=== PATIENT | male | born 1940 | race Caucasian/White ===

== ENCOUNTER 2019-07-10 23:36 | Inpatient (IN) | payer OTHER, MEDICARE, BC ==
[~2019-07-10] VITALS: Ht 172.7 cm; Wt 65.9 kg
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
[2019-07-10] MEDS ORDERED: TRAMADOL HYDROC50 MG PO (23:57)
[2019-07-10] MEDS ORDERED: FLEXERIL PO (23:57)
[2019-07-11] VITALS (8 sets, daily range): BP systolic 169–202; BP diastolic 81–106
--- NOTE | 2019-07-11 00:10 | NUR ---
PT REASSESSMENT COMPLETE. PT REMAINS STABLE, PT CONFUSED, PT IN NO DISTRESS AT THIS TIME. PT CONTINUES TO ASK ABOUT CAR AND GOING HOME.
--- NOTE | 2019-07-11 00:25 | NUR ---
PT REMAINS STABLE, NO CHANGE IN STATUS. PT PROVIDED PO FLUIDS.
[2019-07-11 00:31] LABS: HEMATOCRIT 35.1 % (39.0-50.0); IMMATURE GRANULOCYTES 0.4 % (0.0-5.0); MEAN CELL VOLUME 93.1 fL CALC (80.0-100.0); MEAN CORPUSCULAR HGB 31.8 pG CALC (26.0-32.0); MEAN CORPUSCULAR HGB CONC 34.2 g/L CALC (32.0-36.0); NEUT# 6.51 thou/uL (1.82-7.42); RED BLOOD COUNT 3.77 mill/uL (4.70-6.10); RED CELL DISTRI WIDTH 12.8 % (11.5-15.5)
[2019-07-11 00:42] LABS: ALBUMIN 4.4 g/dL (3.2-5.0); ALKALINE PHOSPHATASE 54 u/l (38-126); ANION GAP 14 (6-22 (CALC)); BILIRUBIN, TOTAL 1.4 mg/dL (0.0-1.4); BUN 30 mg/dL (8-23); BUN/CREATININE RATIO 22 (12-20 (CALC)); CARBON DIOXIDE 25 mmol/l (22-30); CHLORIDE 106 mmol/l (95-108); CREATININE 1.3 mg/dL (0.7-1.3); ETHYL ALCOHOL 0 mg/dl (0-30); GFR 53 ML/MIN (>=60 (CALC)); GFR FOR AFR.AMER. > 60 ML/MIN (>=60 (CALC)); POTASSIUM 4.6 mmol/l (3.5-5.1); SGOT/AST 27 u/l (19-48); SODIUM 141 mmol/l (137-146); TOTAL PROTEIN 7.7 g/dL (6.3-8.2)
--- NOTE | 2019-07-11 01:00 | NUR ---
REPORT TO ISABELLA BAUTISTA, PT REMAINS STABLE. PT REMAINS CONFUSED,MUST BE RE-ORIENTED FREQUENTLY.
--- NOTE | 2019-07-11 01:05 | NUR ---
REPORT RECEIVED. CARE ASSUMED. PATIENT DAUGHTER IS UNABLE TO COME AND PICK HIM UP. GAVE TWO NUMBERS FOR POTENTIAL RIDES HOME, CALLED BOTH AND NO ANSWER. PATIENT BECOMING FRUSTRATED THAT HE HAS NO WAY HOME. ATTEMPTED TO REASSURE PATIENT THAT HE COULD STAY IN ER UNTIL DAYLIGHT TO THEN MAKE HIS PHONE CALLS TO ARRANGE SOME TYPE OF RIDE HOME
--- NOTE | 2019-07-11 01:28 | NUR ---
PATIENT GIVEN SANDWICH AND CRACKERS.
--- NOTE | 2019-07-11 02:09 | NUR ---
PATIENT REORIENTED TO SITUATION AND NEEDING TO STAY IN ER UNTIL THE MORNING. REMINDED THAT HIS DAUGHTER WILL NOT BE COMING TO PICK HIM UP. PATIENT GIVEN TV REMOTE, WARM BLANKET AND BOTTLES OF WATER IN ATTEMPT TO ALLOW HIME TO REST UNTIL THEN.
--- NOTE | 2019-07-11 02:39 | NUR ---
PATIENT AMBULATORY TO BATHROOM WITH STEADY GAIT.
--- NOTE | 2019-07-11 03:16 | NUR ---
LACERATION REPAIRED BY MD. PATIENT TOLERATED WELL.
--- NOTE | 2019-07-11 03:18 | NUR ---
SIMPLE DRESSING APPLIED TO RIGHT HAND. INSTRUCTED PATIENT TO REFRAIN FROM REMOVING IT. VERBALIZES UNDERSTANDING.
--- NOTE | 2019-07-11 03:40 | NUR ---
PATIENT REORIENTED TO PLACE AND SITUATION. INFORMED YET AGAIN OF PLAN TO FIND A RELIABLE RIDE HOME IS OUR PRIORITY. LIGHTS DIMMED TO ENCOURAGE REST AND CALL LIGHT WITHIN REACH.
--- NOTE | 2019-07-11 03:46 | NUR ---
AMBULATORY TO BATHROOM WITHOUT ASSIST.
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
--- NOTE | 2019-07-11 05:00 | NUR ---
PATIENT OUT TO NURSE'S STATION ASKING ABOUT WHY HE IS HERE, WHAT IS THE PLAN WITH HIS CAR ETC. PATIENT REORIENTED TO PLACE AND SITUATION. EMPHASIZED IMPORTANCE OF NEEDING A SAFE RIDE HOME. PATIENT DOES NOT SEEM TO BE RETAINING ANY INFORMATION GIVEN, IS REPEATING QUESTIONS MULTIPLE TIMES. PATIENT HAS REMOVED DRESSING TO RIGHT HAND.
--- NOTE | 2019-07-11 05:12 | NUR ---
DRESSING APPLIED TO HAND. PATIENT STRONGLY ENCOURAGED TO LEAVE DRESSING ALONE.
--- NOTE | 2019-07-11 05:44 | NUR ---
PATIENT OUT TO NURSE'S STATION, ATTEMPTED TO REORIENT AGAIN TO SITUATION AND WHAT WE ARE WAITING ON. DRESSING REMAINS INTACT
--- NOTE | 2019-07-11 06:10 | NUR ---
VITAL SIGNS ATTEMPTED. PATIENT DECLINED. DENIES ANY COMPLAINTS AT PRESENT. DRESSING TO RIGHT HAND REMIANS IN PLACE. PATIENT AGAIN REORIENTED TO PLACE AND SITUATION.
--- NOTE | 2019-07-11 06:51 | NUR ---
CALLED PLACED TO DAUGHTER DAVIE WITH NO ANSWER.
--- NOTE | 2019-07-11 06:57 | NUR ---
REPORT RECEIVED FROM MICHELE MASON.
--- NOTE | 2019-07-11 07:15 | NUR ---
PATIENT TO NURSES STATION REQUESTING TO GO HOME. PATIENT REORIENTED TO TIME, PLACE AND SITUATION. PATIENT REPORTS NOT BEING ABLE TO CALL DAUGHTER BECAUSE SHE IS AT WORK AND ALL OTHER CONTACTS ARE UNAVAILABLE. PATIENT BACK TO ROOM. BREAKFAST TRAY ORDERED FOR PATIENT.
--- NOTE | 2019-07-11 08:00 | NUR ---
PATIENT OUT TO NURSES STATION STATES HE WANTS TO LEAVE. CELL PHONE IN HAND. REORIENTED TO SITUATION. PATIENT REFUSING ANY EXPAINATION. REFUSING TO RETURN TO ROOM. NENO BYERS CALLED.
[2019-07-11 08:27] LABS: URINE BILIRUBIN - DIPSTICK NEGATIVE (NEGATIVE); URINE BLOOD DIPSTICK NEGATIVE (NEGATIVE); URINE COLOR YELLOW; URINE GLUCOSE - DIPSTICK NEGATIVE (NEGATIVE); URINE KETONE NEGATIVE (NEGATIVE); URINE LEUK ESTERASE NEGATIVE (NEGATIVE); URINE NITRITE - DIPSTICK NEGATIVE (Negative); URINE PROTEIN - DIPSTICK NEGATIVE (NEG-TRACE); URINE UROBILINOGEN - DIPSTICK 0.2 E.U./dL (0.2)
[2019-07-11 08:29] LABS: BARBITURATES NEGATIVE (NEGATIVE); COCAINE NEGATIVE (NEGATIVE); METHADONE NEGATIVE (NEGATIVE); OXCYCODONE NEGATIVE (NEGATIVE); TETRAHYDROCANNABIONOL NEGATIVE (NEGATIVE); TRICYLIC ANTIDEPRESSANTS NEGATIVE (NEGATIVE)
--- NOTE | 2019-07-11 08:45 | NUR ---
SECURITY CONTINUES AT BEDSIDE. ATTEMPTED TO REORIENT PATIENT.
--- NOTE | 2019-07-11 09:15 | NUR ---
SITTER AT BEDSIDE.
--- NOTE | 2019-07-11 09:45 | NUR ---
[facility] CALLED. PATIENT MOVED TO ROOM 7 FOR ADDITIONAL SECURITY MEASURE.
--- NOTE | 2019-07-11 09:53 | NUR ---
[employer] DEPARTMENT (X3) AT BEDSIDE.
--- NOTE | 2019-07-11 10:37 | NUR ---
PATIENT IN ROOM YELLING OUT, PULLING AT DOOR HANDLE AND BANGING ON DOOR. MICHELE LLAMAS SPEAKING TO PATIENT.
--- NOTE | 2019-07-11 11:33 | NUR ---
ORDER FOR RESTRAINS PER . PATIENT MEDICATED WITH HALDOL IM X6 STAFF ASSIST.
--- NOTE | 2019-07-11 11:55 | NUR ---
MICHELE LLAMAS UPDATED ON PATIENT STATUS. MICHELE LLAMAS TO ASSUME ONE TO ONE CARE FOR PATIENT.
--- NOTE | 2019-07-11 12:30 | NUR ---
PATIENT CALM AND COOPERATIVE. RESTRAINTS REMOVED NOTIFIED
--- NOTE | 2019-07-11 13:30 | NUR ---
PATIENT RESTING AWAITNG LAB RESULTS AND PLACEMENT. PATIENT REMAINS CONFUSED AND NOT EASILY REORIENTED. PATIENT DENIES ANY PAIN AT THIS TIME. MD NOTIFIED OF PATIENTS STATUS. PATIENT NOT COMBATIVE AND COOPERATIVE AT THIS TIME
--- NOTE | 2019-07-11 13:51 | NUR ---
DOROTA NARAYANAN FROM [facility] [employer] [employer] AT BEDSIDE TO SEE PT
--- NOTE | 2019-07-11 13:57 | NUR ---
D[employer] CREDIT ASSOCIATE AT BEDSIDE FOR PATIENT INTERVIEW
--- NOTE | 2019-07-11 14:23 | NUR ---
[facility] CALLED/ FAXED INFORMATION [facility] [phone] [address] [facility] [address] [place] [id number] [facility] [phone] [facility] [address] [facility] [id number] [facility] [phone] [address] [facility] [id number] [address] PT PLACED ON MEDICAL HOLD FOR ABNORMAL CPK
--- NOTE | 2019-07-11 14:35 | NUR ---
SBAR PRINTED TO FLOOR
--- NOTE | 2019-07-11 14:42 | NUR ---
PATIENT REFUSING EKG SWATTING AT NURSES AND REFUSING ALL CARE AND IVS MD NOTIFIED
--- NOTE | 2019-07-11 15:00 | NUR ---
REPORT CALLED TO ICU AND PATIENT TRANSPORTED
--- NOTE | 2019-07-11 15:05 | NUR ---
PT ADMITTED TO ICU BED 6 FROM ED VIA WC. PT ALERT, REFUSING TO ANSWER ANY QUESTIONS. PT IS REFUSING TX, STATING " i DON'T WANT ALL THIS, BECOMING INCREASINGLY AGGITATED. MEDICATED PER ORDER FOR AGGITATION. SITTER IN PLACE AT BEDSIDE, REDIRECTING NEEDED. WILL MONITOR.
--- NOTE | 2019-07-11 15:25 | NUR ---
DR. JOSÉ NOTIFIED FOR B/P 197/106. PT CONTINUES WITH AGGITATION. NEW ORDERS RECIEVED.
--- NOTE | 2019-07-11 16:00 | NUR ---
PT A&OX3, CONFUSED TO PLACE ONLY. PT SR ON TELEMETRY, HR 86. DENIES CP, SOB OR DISTRESS AT THIS TIME. RESPIRATIONS EVEN/UNLABORED, SA02@100%RA. LS CLEAR THROUGHOUT. ABDOMEN FIRM, NON-TENDER, BSX4. LBM 10-24-19. 20G TO RFA INFUSING NS 1L BOLUS, NO S/S OF INFILTRATION OR REDNESS NOTED AT SITE. PT MORE COOPERATIVE AT THIS TIME. SITTER REMAINS AT BEDSIDE. WILL MONITOR.
--- NOTE | 2019-07-11 16:15 | NUR ---
PT ATTEMPTED TO GET OUT OF BED, AGGITATED, ARGUMENTATIVE WITH STAFF. PT CALMED DOWN AFTER MULTIPLE ATTEMPTS TO REDIRECT. PT ASSITED BACK TO BED. SITTER REMAINS AT BEDSIDE. WILL MONITOR.
--- NOTE | 2019-07-11 16:45 | NUR ---
PT ASSISTED WITH URINAL, VOIDED 275 OP
--- NOTE | 2019-07-11 18:19 | NUR ---
PT SITTING UP IN BED, NEEDS CONSTANT REDIRECTION. SITTER REMAINS AT BEDSIDE.
--- NOTE | 2019-07-11 19:00 | NUR ---
awake. remains confused. knows his name & . aware he's in the hospital but doesn't know which one. unaware of date. information technology director shows sinus rhythm. #20 rfa ns infusing @ 100cchr. po fluids taken well. voids per urinal. fall precautions, michelle act & sitter cont.
--- NOTE | 2019-07-11 20:30 | NUR ---
sonata 5mg po given for sleep.
--- NOTE | 2019-07-11 21:00 | NUR ---
eyes closed. sitter @ bedide.
--- NOTE | 2019-07-11 21:30 | NUR ---
bp 195/85. apresoline 10mg ivp given.
--- NOTE | 2019-07-11 22:00 | NUR ---
bp 177/81.
--- NOTE | 2019-07-11 22:15 | NUR ---
awake. stood to void then back to bed. remains confused. sitter @ bedside.
[2019-07-12] VITALS (17 sets, daily range): BP systolic 131–199; BP diastolic 70–97
--- NOTE | 2019-07-12 00:40 | NUR ---
remains awake. anxious. ativan 1mg ivp given.
--- NOTE | 2019-07-12 00:50 | NUR ---
eyes closed. no distress.
--- NOTE | 2019-07-12 01:05 | NUR ---
awake. stood to void then back to bed. sandra well.
--- NOTE | 2019-07-12 02:00 | NUR ---
naps for short intervals. no distress. sitter remains @ bedside.
--- NOTE | 2019-07-12 04:00 | NUR ---
awake. remains confused. no distress. field sales trainer shows sinus rhythm hr 94.
--- NOTE | 2019-07-12 05:15 | NUR ---
lab here. blood drawn.
[2019-07-12 05:55] LABS: HEMATOCRIT 32.1 % (39.0-50.0); HEMOGLOBIN 11.1 g/dl (14.0-18.0); MEAN CELL VOLUME 92.8 fL CALC (80.0-100.0); MEAN CORPUSCULAR HGB 32.1 pG CALC (26.0-32.0); MEAN CORPUSCULAR HGB CONC 34.6 g/L CALC (32.0-36.0); RED BLOOD COUNT 3.46 mill/uL (4.70-6.10); RED CELL DISTRI WIDTH 12.9 % (11.5-15.5)
--- NOTE | 2019-07-12 06:00 | NUR ---
eyes closed. no distress. sitter @ bedside.
[2019-07-12 06:13] LABS: ANION GAP 9 (6-22 (CALC)); BUN 19 mg/dL (8-23); BUN/CREATININE RATIO 20 (12-20 (CALC)); CARBON DIOXIDE 26 mmol/l (22-30); CHLORIDE 110 mmol/l (95-108); CPK 1271 u/l (52-200); GFR > 60 ML/MIN (>=60 (CALC)); GFR FOR AFR.AMER. > 60 ML/MIN (>=60 (CALC)); POTASSIUM 3.9 mmol/l (3.5-5.1); SODIUM 141 mmol/l (137-146)
--- NOTE | 2019-07-12 07:00 | NUR ---
REPORT RECEIVED FROM JOHANN RODRIGUEZ. PT ATTEMPTING TO GET OUT OF BED. SITTER AT BESIDE.
--- NOTE | 2019-07-12 07:00 | NUR ---
REPORT RECEIVED FROM JOHANN RODRIGUEZ. PT SITTING UP IN BED; ALERT AND ORIENTED. SABAO INFUSING.
--- NOTE | 2019-07-12 07:44 | NUR ---
PT ALERT AND ORIENTED. COOPERATIVE WITH ASSESSMENT, BUT DOES FREQUENTLY STILL ATTEMPT TO GET OUT OF BED UNASSISTED. LUNGS CLEAR; PUPILS PIN POINT. RIGHT HAND SWOLLEN AND RED WITH SUTURES TO THUMB. CURRENTLY SITTING UP IN BED EATING BREAKFAST. PLAN OF CARE REVIEWED. PT ENCOURAGED TO VERBALIZE CONCERNS. STATES UNDERSTANDING. SAFETY MEASURES IN PLACE. CALL LIGHT WITHIN REACH.
--- NOTE | 2019-07-12 09:00 | NUR ---
ENEIDA BARTON AT BEDSIDE.
--- NOTE | 2019-07-12 09:03 | NUR ---
PT ATTEMPTING TO LEAVE THE ROOM AND AGITATED/COMBATIVE; PLACED HAND AROUND SITTERS THROAT. ASSISTED TO BEDSIDE CHAIR X 2 PERSON ASSIST. ZYPREXA ADMINSITERED IM TO LEFT ARM AND APRESOLINE ADMINISTERED FOR ELEVATED BP.
--- NOTE | 2019-07-12 09:56 | NUR ---
PT MORE RELAXED AND COOPERATIVE; BACK IN BED. BLOOD PRESSURE IMPROVED; CURRENTLY 161/83 HR 84.
--- NOTE | 2019-07-12 10:28 | NUR ---
UPDATES GIVEN TO BOTH DAUGHTERS ON THE PHONE; CODE PROVIDED. ALL QUESTIONS ANSWERED TO SATISFACTION.
--- NOTE | 2019-07-12 12:54 | NUR ---
PT INCREASINGLY AGITATED AND WANTING TO LEAVE. ATIVAN GIVEN. STOOD AT BEDSIDE TO VOID. BLOOD PRESSURE ALSO ELEVATED; NEW ORDER FOR LISINOPRIL GIVEN.
--- NOTE | 2019-07-12 13:00 | NUR ---
DR. JOSÉ AT BEDSIDE.
[2019-07-12] MEDS ORDERED: LABETALOL HYDR300 MG PO (13:22)
[2019-07-12] MEDS ORDERED: NIFEDIPINE ER30 M1 PO (13:23)
--- NOTE | 2019-07-12 13:23 | NUR ---
SPOKE WITH PT'S PHARMACY [facility] IN [place], [place]. MEDICATION RECONCILIATION COMPLETED.
[2019-07-12 13:25] LABS: TOTAL PROTEIN 6.4 g/dL (6.3-8.2)
[2019-07-12 13:30] LABS: ALBUMIN 3.5 g/dL (3.2-5.0); BILIRUBIN, TOTAL 2.8 mg/dL (0.0-1.4)
--- NOTE | 2019-07-12 16:41 | NUR ---
PT RESTING IN BED WITH EYES CLOSED AND NO SIGNS OF DISTRESS. FREQUENTLY STANDING AT BEDSIDE TO VOID. ATTEMPTS TO GO INTO BATHROOM OR LEAVE AND REQUIRES ENCOURAGEMENT FROM STAFF TO STAY IN BED/CHAIR. SITTER REMAINS AT BEDSIDE.
--- NOTE | 2019-07-12 17:37 | NUR ---
APRESOLINE GIVEN FOR ELEVATED BLOOD PRESSURE.
--- NOTE | 2019-07-12 18:04 | NUR ---
PT DECLINED DINNER STATING THAT HE HAD DINNER LAST NIGHT AND DOESN'T WANT IT AGAIN TONIGHT; STATES THAT HE WILL WAIT FOR BREAKFAST.
--- NOTE | 2019-07-12 20:00 | NUR ---
PT AWAKE RESTING IN BED. PT IS ALERT AND ORIENTED BUT FREQUENT REDIRECTION IS NEEDED. PT IS ALERT TO NAME, DATE BUT CONFUSED ON SITUATION. PT FREQUENTLY ATTEMPTING TO GET OOB. LUNGS CLEAR BILAT. ABD SOFT AND NONDISTENDED WITH BOWEL SOUNDS PRESENT. NO LOWER EXT EDEMA NOTED. PEDAL PULSES PALPATED BILAT. IV SITE PATENT IN RT FOREARM NO RENDESS OR TENDERNESS AT IV SITE. NSS AT 125CC/HR. RT HAND IS RED AND EDEMATOUS WITH SUTURES NOTED IN THUMB. PT MOVES RT HAND WITHOUT ANY DIFFICULTY. TELE SR. B/P IS HIGH BUT PT IS OOB AND FREQUENTLY MOVING AROUND. 2100 B/P LABETALLOL GIVEN EARLY. SITTER AT BEDSIDE. WILL CONTINUE TO CLOSELY MONITOR. CALL SYLVESTER WITHIN REACH.
--- NOTE | 2019-07-12 21:08 | NUR ---
PT EATING EVENING SNACK. RESP EVEN AND UNLABORED. B/P 160/82. SITTER WITH PT. CALL SYLVESTER WITHIN REACH.
--- NOTE | 2019-07-12 22:30 | NUR ---
pt removed water and sewer systems superintendent. refused to have replaced.
--- NOTE | 2019-07-12 22:45 | NUR ---
remains confused & restless. sonata 5mg po given for sleep.
--- NOTE | 2019-07-12 23:00 | NUR ---
cont to get oob. assisted back to bed. becoming more physical with staff. hitting staff.
--- NOTE | 2019-07-12 23:30 | NUR ---
bp cuff removed by pt. pt refuses to have replaced.
--- NOTE | 2019-07-12 23:55 | NUR ---
cont to get oob. hitting staff. insisting on "going to my bed." unable to reorient. zyprexa 2.5mg im given. sitter remains @ bedside.
--- NOTE | 2019-07-13 01:45 | NUR ---
snores for seconds then awakens & has attempted to get oob numerous times. becomes upset & agitated when assisted back to bed. ativan 1mg iv given.
--- NOTE | 2019-07-13 02:00 | NUR ---
picking @ blanket but appears to be sleeping. snoring @ intervals.
--- NOTE | 2019-07-13 03:00 | NUR ---
cont to sleep for minutes @ a time. cont to make numerous attempts to get oob. cont to be uncoop with care. hits staff @ times. sitter remains @ bedside.
--- NOTE | 2019-07-13 06:00 | NUR ---
cont to be confused. sleeps from seconds to minutes. refuses to have personnel monitor or bp cuff on.
[2019-07-13 07:09] LABS: ANION GAP 12 (6-22 (CALC)); BUN 21 mg/dL (8-23); BUN/CREATININE RATIO 24 (12-20 (CALC)); CARBON DIOXIDE 23 mmol/l (22-30); CHLORIDE 108 mmol/l (95-108); CREATININE 0.9 mg/dL (0.7-1.3); GFR > 60 ML/MIN (>=60 (CALC)); GFR FOR AFR.AMER. > 60 ML/MIN (>=60 (CALC)); POTASSIUM 3.8 mmol/l (3.5-5.1); SODIUM 139 mmol/l (137-146)
--- NOTE | 2019-07-13 07:20 | NUR ---
PT RESTING IN BED AWAKE. PT IS ALERT TO SELF ONLY. REORIENTATION UNSUCCESSFUL. PT MAKING MULTIPLE ATTEMPTS TO GET OUT OF BED AND BEING COMBATIVE WITH STAFF. SHIFT ASSESSMENT COMPLETED AT THIS TIME. IV PATENT X1. SITTER AT BEDSIDE. WILL CONTINUE TO MONITOR.
--- NOTE | 2019-07-13 07:40 | NUR ---
PT SET UP FOR AM MEAL. SITTER MADE MULTIPLE ATTEMPTS TO ASSIST IN FEEDING AND OFFERED FOOD TO PATIENT. PATIENT CONTINUOUSLY REFUSED MEAL.
[2019-07-13 07:49] VITALS: BP 166/91
--- NOTE | 2019-07-13 08:00 | NUR ---
NOTIFIED DR JOSÉ OF INCREASED AGITATION AND PT BEING COMBATIVE. NEW ORDERS RECEIVED.
--- NOTE | 2019-07-13 08:31 | NUR ---
DAUGHTER DAVIE PRETTY PHONED FOR UPDATE. UPDATE PROVIDED.
--- NOTE | 2019-07-13 09:00 | NUR ---
ORALIA IRVING APRN AT BEDSIDE AT THIS TIME
--- NOTE | 2019-07-13 09:35 | NUR ---
PT CONTINUES TO ATTEMPT TO GET OUT OF BED. PT IS ABLE TO BE REDEIRECTED
--- NOTE | 2019-07-13 10:30 | NUR ---
PT CONTINUES TO HAVE AGITATION AND BE COMBATIVE WITH STAFF AND TRY TO GET OUT OF BED. REORIENTATION IS SUCCESSFUL AT TIMES
--- NOTE | 2019-07-13 11:44 | NUR ---
PTSET UP FOR NOON MEAL.
[2019-07-13 12:00] VITALS: BP 161/68
--- NOTE | 2019-07-13 13:15 | NUR ---
DR JOSÉ AT BEDSIDE AT THIS TIME
--- NOTE | 2019-07-13 14:31 | NUR ---
PT RESTING IN BED WATCHING TV. RESP ARE EVEN AND UNLABORED. SITTER REMAINS AT BEDISDE. WILL CONTINUE TO CLOSELY MONITOR.
[2019-07-13 16:00] VITALS: BP 186/93
--- NOTE | 2019-07-13 16:22 | NUR ---
PT RESTING IN BED SLEEPING ON AND OFF. PT CONTINUES TO BE CONFUSED BUT ABLE TO REORIENT. RESP ARE EVEN AND UNLABORED. NO DISTRESS NOTED. SITTER REMAINS AT BEDISDE. WILL CONTINUE TO MONITOR.
--- NOTE | 2019-07-13 17:18 | NUR ---
PT SETUP FOR PM MEAL
--- NOTE | 2019-07-13 18:32 | NUR ---
PT RESTING IN BED AT THIS TIME. RESP ARE EVEN AND UNLABORED. NO DISTRESS NOTED. SITTER REMAINS AT BEDSIDE. WILL CONTINUE TO MONITOR.
[2019-07-13 19:00] VITALS: BP 150/79
--- NOTE | 2019-07-13 19:00 | NUR ---
up in chair. remains confused. noncombative @ present. panel monitor replaced-sinus rhythm hr 91. #20 rfa ns infusing @ 125cchr. po fluids taken well. fall precautions & michelle act cont. sitter bedside.
--- NOTE | 2019-07-13 19:45 | NUR ---
assisted back to bed.
--- NOTE | 2019-07-13 20:40 | NUR ---
sonata 5mg po given for sleep.
[2019-07-13 21:00] VITALS: BP 171/80
--- NOTE | 2019-07-13 21:15 | NUR ---
confused. agitated. attempting to get oob. ativan 1mg ivp given.
--- NOTE | 2019-07-13 21:30 | NUR ---
eyes closed. sitter @ bedside.
--- NOTE | 2019-07-13 22:00 | NUR ---
bp cuff off. no distress. sitter @ bedside.
[2019-07-14] VITALS (9 sets, daily range): BP systolic 114–187; BP diastolic 67–92
--- NOTE | 2019-07-14 00:01 | NUR ---
eyes closed. no distress. harness repairer shows sinus rhythm hr 80.
--- NOTE | 2019-07-14 02:00 | NUR ---
resting quietly. no apparent distress. beauty artist shows sinus rhythm hr 82.
--- NOTE | 2019-07-14 04:00 | NUR ---
resting quietly. no distress. gambling monitor shows sinus rhythm hr 84.
--- NOTE | 2019-07-14 06:00 | NUR ---
eyes closed. no distress. sitter @ bedside.
[2019-07-14 06:59] LABS: ANION GAP 12 (6-22 (CALC)); BUN 27 mg/dL (8-23); BUN/CREATININE RATIO 30 (12-20 (CALC)); CARBON DIOXIDE 21 mmol/l (22-30); CHLORIDE 111 mmol/l (95-108); CREATININE 0.9 mg/dL (0.7-1.3); GFR > 60 ML/MIN (>=60 (CALC)); GFR FOR AFR.AMER. > 60 ML/MIN (>=60 (CALC)); POTASSIUM 4.1 mmol/l (3.5-5.1); SODIUM 140 mmol/l (137-146)
--- NOTE | 2019-07-14 07:15 | NUR ---
PATIENT AWAKE ON ROUNDS. ALERT, ORIENTED TO PERSON AND PLACE, ABLE TO STAT BIRTHDATE, UNABLE TO STATE CURRENT YEAR BUT IS ABLE TO BE REORIENTED. IV IN RFA, SITE BENIGN, NS INFUSING AT 125 ML/HR. MONITOR SR. PATIENT INCONTIENT OF URINE, PARTIAL BATH GIVEN BY PATIENT ACCOUNT LIAISON. SITTER AT BEDISDE. SHIFT ASSESSMENT COMPLETED AT THIS TIME.
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
[2019-07-14 10:58] LABS: HEMATOCRIT 32.2 % (39.0-50.0); HEMOGLOBIN 10.9 g/dl (14.0-18.0); MEAN CELL VOLUME 95.3 fL CALC (80.0-100.0); MEAN CORPUSCULAR HGB 32.2 pG CALC (26.0-32.0); MEAN CORPUSCULAR HGB CONC 33.9 g/L CALC (32.0-36.0); RED BLOOD COUNT 3.38 mill/uL (4.70-6.10); RED CELL DISTRI WIDTH 13.2 % (11.5-15.5)
[2019-07-14 11:36] LABS: ALBUMIN 3.8 g/dL (3.2-5.0); BILIRUBIN, TOTAL 3.1 mg/dL (0.0-1.4); TOTAL PROTEIN 6.8 g/dL (6.3-8.2)
--- NOTE | 2019-07-14 12:00 | NUR ---
PATIENT DECLINED LUNCH TRAY. VOIDING SMALL AMOUNTS.
--- NOTE | 2019-07-14 13:00 | NUR ---
NPO STATUS FOR ULTRASOUND.
--- NOTE | 2019-07-14 14:45 | NUR ---
COURTNEY BLOCKER HEATED METAL FORMS NOTIFIED OF >1000 ML NOTED ON US AT BEDSIDE. ORDERS RECEIVED FOR PLACEMENT OF MARIEE AND URINALYSIS.
--- NOTE | 2019-07-14 16:05 | NUR ---
PATIENT HAS BEEN COOPERATIVE TODAY. ORIENTED X3. VSS. NO COMPLAINTS VOICED.
--- NOTE | 2019-07-14 17:30 | NUR ---
UP TO BEDSIDE CHAIR FOR DINNER. TRANSFERS WELL WITH ONE ASSIST.
--- NOTE | 2019-07-14 18:14 | NUR ---
PATIENT ASSIST BATH WHILE IN CHAIR THEN RETURNED TO BED. REMAINS ALERT, ORIENTED X3 AND COOPERATIVE. VSS. MONITOR SR. MARIEE HAD 1700 OUT SINCE INSERTED THIS AFTERNOON. SITTER HS BEEN AT BEDSIDE THROUGHOUT THE DAY.
[2019-07-14 18:42] LABS: URINE BLOOD DIPSTICK LARGE (NEGATIVE); URINE COLOR YELLOW; URINE GLUCOSE - DIPSTICK NEGATIVE (NEGATIVE); URINE KETONE 40 mg/dL (NEGATIVE); URINE LEUK ESTERASE TRACE (NEGATIVE); URINE NITRITE - DIPSTICK NEGATIVE (Negative); URINE PH 5.5 (4.5-8.0); URINE PROTEIN - DIPSTICK 100 mg/dL (NEG-TRACE); URINE SPECIFIC GRAVITY >=1.030
[2019-07-14 18:48] LABS: URINE BILIRUBIN - DIPSTICK NEGATIVE (NEGATIVE)
--- NOTE | 2019-07-14 19:00 | NUR ---
REPORT RECEIVED FROM MICHELE VALDES. PT RESTING IN BED WITH NO SIGNS OF DISTRESS. SITTER AT BEDSIDE.
--- NOTE | 2019-07-14 19:34 | NUR ---
PT ALERT AND ORIENTED; DENIES PAIN. RESPIRATIONS EVEN AND UNLABORED ON ROOM AIR. ASSESSMENT COMPLETED; LUNGS CLEAR; SKIN JAUNDICE; PUPILS PERRLA AND PIN POINT. MARIEE CATHETER IN PLACE DRAINING CLEAR YELLOW URINE IN ADEQUATE AMOUNTS. IV FLUIDS INFUSING WITHOUT DIFFICULTY; IV SITE APPEARS HEALTHY. PLAN OF CARE REVIEWED; NEEDS REINFORCEMENT R/T MENTAL CONDITION. SAFETY MEASURES IN PLACE. CALL LIGHT WITHIN REACH.
--- NOTE | 2019-07-14 21:00 | NUR ---
SPOKE WITH CHANEL, BROTHER; UPDATE GIVEN. FAMILY HAD MULTIPLE QUESTIONS ABOUT DISCHARGE PLANS INCLUDING TIME AND PLACE. REFERRED HIM TO CASE MANAGEMENT.
--- NOTE | 2019-07-14 21:15 | NUR ---
HS MEDICATIONS TAKEN WITHOUT TROUBLE. PT SWALLOWED PO MEDS EASILY. EASILY REORIENTED AT THIS TIME TO SITUATION.
--- NOTE | 2019-07-14 23:44 | NUR ---
PT SLEEPING INTERMITTENTLY; WAKES UP FREQUENTLY WITH DIFFERENT REQUESTS SUCH WANTING PANTS, ASKING FOR LOTION, SOMETHING TO DRINK, ETC. REQUESTS PROVIDED IF ABLE. PT CONTINUES TO DENY PAIN. WARM PLANKET GIVEN WELL. VSS.
[2019-07-15] VITALS (8 sets, daily range): BP systolic 139–169; BP diastolic 64–79
--- NOTE | 2019-07-15 02:14 | NUR ---
PT ASLEEP WITH NO SIGNS OF DISTRESS. RESPIRATIONS EVEN AND UNLABORED ON ROOM AIR. MARIEE REMAINS PATENT. SITTER AT BEDSIDE.
--- NOTE | 2019-07-15 04:44 | NUR ---
LAB AT BEDSIDE.
[2019-07-15 05:02] LABS: HEMATOCRIT 29.2 % (39.0-50.0); IMMATURE GRANULOCYTES 0.4 % (0.0-5.0); MEAN CELL VOLUME 93.3 fL CALC (80.0-100.0); MEAN CORPUSCULAR HGB 31.9 pG CALC (26.0-32.0); MEAN CORPUSCULAR HGB CONC 34.2 g/L CALC (32.0-36.0); NEUT# 5.67 thou/uL (1.82-7.42); RED BLOOD COUNT 3.13 mill/uL (4.70-6.10); RED CELL DISTRI WIDTH 12.8 % (11.5-15.5)
[2019-07-15 05:20] LABS: BILIRUBIN, TOTAL 2.2 mg/dL (0.0-1.4)
[2019-07-15 05:21] LABS: ANION GAP 8 (6-22 (CALC)); BUN 20 mg/dL (8-23); BUN/CREATININE RATIO 24 (12-20 (CALC)); CARBON DIOXIDE 24 mmol/l (22-30); CHLORIDE 112 mmol/l (95-108); CPK 402 u/l (52-200); CREATININE 0.9 mg/dL (0.7-1.3); GFR > 60 ML/MIN (>=60 (CALC)); GFR FOR AFR.AMER. > 60 ML/MIN (>=60 (CALC)); POTASSIUM 3.3 mmol/l (3.5-5.1); SODIUM 141 mmol/l (137-146)
--- NOTE | 2019-07-15 07:20 | NUR ---
PT RESTING IN BED ASLEEP PT AROUSES TO VERBAL STIMULI. PT IS ALERT AND ORIENTED X3. SHIFT ASSESSMENT COMPLETED AT THIS TIME. IV PATENT X1. CALL LIGHT IN REACH. WILL CONTINUE TO MONITOR.
--- NOTE | 2019-07-15 09:50 | NUR ---
MARIEE CATH REMOVED AT THIS TIME PER DR. JOSÉ. PT TOLERATED WELL. WILL CONTINUE TO MONITOR. SILVERING APPLICATOR REMAINS AT BEDSIDE.
--- NOTE | 2019-07-15 09:51 | NUR ---
DR JOSÉ AT BEDSIDE AT THIS TIME
--- NOTE | 2019-07-15 10:50 | NUR ---
DAUGHTER MACO PHONED FOR UPDATE. UPDATE PROVIDED. DAUGHTER REQUESTED TO SPEAK TO PATIENT. PHONE CONNECTED TO CORDLESS AND GIVEN TO PATIENT. PATIENT ABLE TO CONVERSE AND HAVE APPROPRIATE CONVERSATION WITH DAUGHTER
--- NOTE | 2019-07-15 10:59 | NUR ---
LAURENTKAT BUCHANAN PHONED FOR UPDATE. UPDATE PROVIDED. REQUESTED TO SPEAK TO PATIENT. CONNECTED PHONE TO PATIENT.
--- NOTE | 2019-07-15 11:40 | NUR ---
PT ASSISTED UP TO CHAIR AT BEDSIDE FOR NOON MEAL
--- NOTE | 2019-07-15 13:30 | NUR ---
PT RESTING IN BED WITH EYES CLOSED RESP ARE EVEN AND UNLABROED. NO DISTRESS NOTED. CALL LIGHT IN REACH. WILL CONTINUE TO MONITOR.
--- NOTE | 2019-07-15 14:15 | NUR ---
PT TO MEDSURG ACCOMPANIED BY DIRECTOR OF SLOT OPERATIONS FOR SHOWER. LINENS CHANGED AT THIS TIME.
--- NOTE | 2019-07-15 14:45 | NUR ---
PT RETURNED TO ICU BED 6 VIA WHEELCHAIR. PT ASSISTED BACK TO BED. BED ALARM IN PLACE FOR PATIENT SAFETY. CALL LIGHT IN REACH. WILL CONTINUE TO MONITOR.
--- NOTE | 2019-07-15 15:23 | NUR ---
BLADDER SCANNED PATIENT 431 ML. OFFERRED URINAL TO PATIENT. PATIENT STATED THAT HE DID NOT HAVE TO URINATE.
--- NOTE | 2019-07-15 16:15 | NUR ---
PT CONTINUES TO DENY HAVING TO URINATE. PHONED COURTNEY WYNN. ORDERS RECEIVED TO PLACE MARIEE
--- NOTE | 2019-07-15 16:38 | NUR ---
# 16 GUATEMALAN SAMARIA PLACED WITH STRAP INTACT. DRAINING SHANICE URINE. EXPLAINED TO PT RE: UNABLE TO URINATE VERY MUCH AND HAD URINE LEFT THAT WE NEEDED TO GET IT OUT. STATED" OK"
--- NOTE | 2019-07-15 17:03 | NUR ---
PHYSICAL THERAPY AT BEDSIDE AT THIS TIME
--- NOTE | 2019-07-15 17:29 | NUR ---
PT SET UP FOR PM MEAL
--- NOTE | 2019-07-15 18:00 | NUR ---
PT AMBULATING AROUND UNIT WITH SITTER. WILL CONTINUE TO [place].
--- NOTE | 2019-07-15 18:45 | NUR ---
REPORT FROM Marlon MITCHELL RN. ASSUMED PT. CARE.
--- NOTE | 2019-07-15 19:35 | NUR ---
PT. FOUND RESTING IN BED IN NO DISTRESS ON HIS CELL PHONE AND WATCHING TELEVISION. AWAKE, ALERT, ORIENTED X 2. ORIENTED TO PERSON AND TIME. PT. THOU[place]HT [place] PT. RESPS EVEN AND UNLABORED. SKIN WARM AND DRY. DENIES COMPLAINTS OF PAIN OR NEED. BOWEL SOUNDS ACTIVE. MARIEE NOTED. LUNGS CTA. MILD SWELLING NOTED TO RT. ARM. 3 SUTURES NOTED TO BASE OF THUMB THAT ARE CLEAN, DRY AND INTACT. VOICES NO COMPLAINTS OR NEEDS. CALL LIGHT WITHIN REACH. WILL CONTINUE TO MONITOR.
--- NOTE | 2019-07-15 20:18 | NUR ---
PT. PROVIDED WITH ICE CREAM. BP/HR STABLE. ABULATORY AROUND THE DEPARTMENT WITH STEADY GAIT.
--- NOTE | 2019-07-15 23:45 | NUR ---
PT. RESTING IN BED WITH EYES CLOSED IN NO DISTRESS. SITTER REMAINS AT BEDSIDE AT THIS TIME. INTERMITTENTLY AROUSES SPONTANEOUSLY AND IS CONFUSED, BUT EASILY REORIENTED AND GOES BACK TO SLEEP.
[2019-07-16] VITALS: BP 131/67
--- NOTE | 2019-07-16 03:49 | NUR ---
PT. REMAINS RESTFUL IN NO DISTRESS. CALL LIGHT REMAINS AT BEDSIDE. RESPS REMAIN EVEN AN UNLABORED. SITTER REMAINS AT BEDSIDE. VOICES NO COMPLAINTS OR NEEDS. WILL CONTINUE TO MONITOR.
[2019-07-16 04:00] VITALS: BP 143/54
--- NOTE | 2019-07-16 04:50 | NUR ---
REMAINS EASILY AROUSABLE TO LIGHT VERBAL STIMULI. BP/HR REMAIN STABLE. CALL LIGHT WITHIN REACH AND SITTER REMAINS AT BEDSIDE. WILL CONTINUE TO CLOSELY MONITOR.
--- NOTE | 2019-07-16 06:55 | NUR ---
LAB AT BEDSIDE FOR AM LABS
[2019-07-16 07:00] VITALS: BP 150/65
--- NOTE | 2019-07-16 07:00 | NUR ---
PT RESTING IN BED WITH EYES CLOSED. AROUSES TO VERBAL STIMULI. PT IS ALERT AND ORIENTED X3. SHIDT ASSESSMENT COMPLETED AT THIS TIME. SITTER AT BEDSIDE. CALL LIGHT IN REACH. WILL CONTINUE TO MONITOR.
[2019-07-16 07:21] LABS: ALKALINE PHOSPHATASE 37 u/l (38-126); ANION GAP 7 (6-22 (CALC)); BUN 19 mg/dL (8-23); BUN/CREATININE RATIO 23 (12-20 (CALC)); CARBON DIOXIDE 27 mmol/l (22-30); CHLORIDE 108 mmol/l (95-108); CPK 256 u/l (52-200); CREATININE 0.8 mg/dL (0.7-1.3); GFR > 60 ML/MIN (>=60 (CALC)); GFR FOR AFR.AMER. > 60 ML/MIN (>=60 (CALC)); POTASSIUM 3.1 mmol/l (3.5-5.1); SGOT/AST 43 u/l (19-48); SODIUM 139 mmol/l (137-146); TOTAL PROTEIN 5.8 g/dL (6.3-8.2)
--- NOTE | 2019-07-16 09:00 | NUR ---
MARIEE REMOVED PER MD ORDER. PT TOLERATED WELL
--- NOTE | 2019-07-16 10:09 | NUR ---
DAUGHTER MACO PHONED FOR UPDATE. UPDATE PROVIDED. DAUGHTER REQUESTED THAT NURSING STAFF ASK PATIENT WHERE EACH FAMILY MEMBER LIVES TO ASSESS ORIENTATION. EXPLAINED THAT WILL BE DIFFICULT FOR NURSING STAFF TO DO WE DO NOT KNOW WHERE FAMILY LIVES. EXPLAINED THE PROCESS OF ASSESSING ORIENTATION STATUS. DAUGHTER REQUESTED TO SPEAK FATHER. CONNECTED PHONE.
--- NOTE | 2019-07-16 11:30 | NUR ---
PT SITTING UP IN CHAIR EATING LUNCH. PT HAS ON PERSONAL CLOTHING. WILL CONTINUE TO [facility].
--- NOTE | 2019-07-16 12:49 | NUR ---
PHYSICAL THERAPY AT BEDSIDE AT THIS TIME
--- NOTE | 2019-07-16 13:03 | NUR ---
PT WAS SEEN FOR GT THIS PM. HE WAS COOPERATIVE AND IN GOOD MOOD TODAY. HE AMBULATED IN THE HALLWAY OUTSIDE OF ICU W/O AD X ~100 FT X 2 WITH CGA AND GB. HE DEMONSTRATED STABLE GAIT AND BALANCE WITH NORMAL WINIFRED. NO INSTABILITY OR OTHER ADVERSE RXNS SEEN OR REPORTED. AMPAC SCORE: 21 POINTS. SAFE FOR INDEP. LIVING.
--- NOTE | 2019-07-16 15:04 | NUR ---
BLADDER SCANNED PATIENT. 430ML ON BLADDER SCANNER. PT ATTEMPTED TO VOID. UNABLE TO VOID AT THIS TIME.
--- NOTE | 2019-07-16 16:15 | NUR ---
bladder scanned patient shows >500ml notified federico car. new orders received.
--- NOTE | 2019-07-16 16:40 | NUR ---
ernst placed using sterile technique. immeadiate return of urine.
[2019-07-16 16:52] VITALS: BP 154/76
[2019-07-16 19:00] VITALS: BP 140/65
--- NOTE | 2019-07-16 19:00 | NUR ---
awake. oriented to name & place. thinks it's july. refuses electronic device monitor placement. sutures to rt thumb are intact. po fluids taken well. ernst cath in place. urine clear yellow. ernst bag emptied. fall precautions cont. sitter @ bedside.
--- NOTE | 2019-07-16 21:00 | NUR ---
watching baseball game. no distress.
[2019-07-17] VITALS (7 sets, daily range): BP systolic 127–164; BP diastolic 70–89
--- NOTE | 2019-07-17 00:01 | NUR ---
eyes closed. no distress. jacqui @ [facility].
--- NOTE | 2019-07-17 00:04 | NUR ---
resting quietly. resps even & unlabored. no apparent distress.
--- NOTE | 2019-07-17 04:30 | NUR ---
lab here. blood drawn.
[2019-07-17 05:08] LABS: ALKALINE PHOSPHATASE 37 u/l (38-126); ANION GAP 9 (6-22 (CALC)); BILIRUBIN, TOTAL 1.6 mg/dL (0.0-1.4); BUN 21 mg/dL (8-23); BUN/CREATININE RATIO 23 (12-20 (CALC)); CARBON DIOXIDE 26 mmol/l (22-30); CHLORIDE 106 mmol/l (95-108); CPK 165 u/l (52-200); CREATININE 0.9 mg/dL (0.7-1.3); GFR > 60 ML/MIN (>=60 (CALC)); GFR FOR AFR.AMER. > 60 ML/MIN (>=60 (CALC)); POTASSIUM 3.3 mmol/l (3.5-5.1); SGOT/AST 37 u/l (19-48); SODIUM 138 mmol/l (137-146); TOTAL PROTEIN 5.9 g/dL (6.3-8.2)
--- NOTE | 2019-07-17 07:30 | NUR ---
AWAKE ON ROUNDS, CALM AND COOPERTVIE. ANSWERING ALL QUESTIONS APPROPRIATELY AND FOLLOWING ALL COMMANS. SHIFT ASESSMENT COMPLETED. NVO. NO TELE PATIENT WILL NOT LEAVE MONITOR ON.
--- NOTE | 2019-07-17 09:00 | NUR ---
SITTING AT SIDE OF BED, OCCASIONALLY STANDS AND WALKS TO SLEEP, SOMEWHT UNSTEAY ON FEET. SITTER AT BEDSIDE.
--- NOTE | 2019-07-17 09:45 | NUR ---
DR JOSÉ IN TO SEE PATIENT.
--- NOTE | 2019-07-17 11:45 | NUR ---
REPORT CALLED TO NAA ON M/S.
--- NOTE | 2019-07-17 11:55 | NUR ---
PT TRANSPORTED TO MS2 VIA WC FROM ICU ACCOMPIANED BY MICHELE CARMONA. VS. DONE. PT ASSISTED TO COUCH FOR COMFORT. PT DENIES ANY PAIN OR NEEDS. POC DISCUSSED. SAFETY PRECAUTIONS IN PLACE. CALL LIGHT IN REACH. WILL CONTINUE TO MONITOR.
--- NOTE | 2019-07-17 11:55 | NUR ---
PATIENT TRANSFERRED TO M/S VIA WC WITH BELONGINGS.
--- NOTE | 2019-07-17 15:53 | NUR ---
PT RESTING IN RECLINER. NO C/O PAIN OR NEEDS. CALL LIGHT IN REACH. WILL CONTINUE TO MONITOR.
--- NOTE | 2019-07-17 16:24 | NUR ---
Therapy session was focused on gait trainig today. Entered pt. room as he was seated on couch next to window. Pt. agreed to participate in therapy. Gait training (CGA) x 40 feet, executing head turns and lifts as he ambulates, loss of balance as he performs these movements slightly to his left. Gait training 200 feet (CGA) Vc for pt. to focus when amulating, slow down fawad, increase hip flexion to clear floor in swing through phase of gait cycle. Tray table and call lott by patient side when exiting room. AMPAC 6 score 18 but with level of cognition would suggest ECF.
--- NOTE | 2019-07-17 18:50 | NUR ---
REPORT FROM NAA WILLS. PT NOTED TO BE UP WALKING AROUND ROOM IN CLOTHES THAT HE APPARENTLY WAS WEARING UPON ADMISSION. PT CARRYING MARIEE BAG AROUND. DISCUSSED POC. PT VERBALIZED UNDERSTANDING. ASSISTED PT BACK TO BED AND ENCOURAGED PT TO CALL FOR NEEDS. CALL LIGHT WITHIN REACH. WILL CONTINUE TO MONITOR.
--- NOTE | 2019-07-17 20:11 | NUR ---
PT EXITING ROOM VP AD [employer] CONFRONTED IN [place]. PT REQUESTING TO HAVE MARIEE CATHETER REMOVED. EDUCATED PT AND REDIRECTED AT THIS TIME. PT BACK IN ROOM, WILL CONTINUE TO MONITOR.
--- NOTE | 2019-07-18 00:05 | NUR ---
PT RESTING IN BED WITH EYES CLOSED. NO APPARENT DISTRESS NOTED. CALL LIGHT WITHIN REACH. WILL CONTINUE TO MONITOR.
[2019-07-18 04:52] VITALS: BP 145/74
--- NOTE | 2019-07-18 06:38 | NUR ---
MARIEE EMPTIED. PT AGITATED ABOUT BEING WOKE UP SO EARLY. EASILY REDIRECTED. PT QUESTIONING WHEN MARIEE CAN COME OUT. EDUCATION PROVIDED AT THIS TIME. PT DENIES ANY CURRENT NEEDS. CALL LIGHT WITHIN REACH. WILL CONTINUE TO MONITOR.
--- NOTE | 2019-07-18 07:25 | NUR ---
PT REPORT RECIEVED FROM JOHANN NOLASCO. PT RESTING. NO S/S OF DISTRESS. CALL LIGHT IN REACH. WILL CONTINUE TO MONITOR.
[2019-07-18 07:34] VITALS: BP 145/71
--- NOTE | 2019-07-18 07:34 | NUR ---
PT A/O X3, FORGETFUL AT TIMES. RESP EVEN AND UNLABORED. LUNG SOUNDS CLEAR. BOWEL SOUNDS ACTIVE X4. WEAK RADIAL AND PEDAL PULSES. MARIEE INTACT; YELLOW URINE NOTED. PT DENIES ANY PAIN OR NEEDS. POC DISCUSSED. SAFETY PRECAUTIONS IN PLACE. CALL LIGHT IN REACH. WILL CONTINUE TO MONITOR.
[2019-07-18 09:41] VITALS: BP 145/71
--- NOTE | 2019-07-18 10:44 | NUR ---
PT WAS SEEN SITTING IN THE COUCH WITH CATHETER ON. SIT<>STAND INDEPENDENTLY THEN AMBULATED IN THE HALLWAY W/O AD X ~200 FT X 2. NOTED VERY MILD INSTABILITY ON DYNAMIC STANDING BUT CATCHES SELF IMMEDIATELY TO PREVENT FALLING. AMPAC SCORE TODAY: 21 POINTS
[2019-07-18] MEDS ORDERED: LISINOPRIL20 M1 PO (11:24)
[2019-07-18] MEDS ORDERED: TAMSULOSIN HCL0.4 MG PO (11:24)
[2019-07-18] MEDS ORDERED: QUETIAPINE FUMA25 MG PO (11:24)
--- NOTE | 2019-07-18 11:40 | NUR ---
D/C INSTRUCTIONS DISCUSSED W/ PT. PT STATES UNDERSTANDING. NO IV SITE. PT TO BE TRANSPORTED DOWNSTAIRS BY VOLUNTEER.
--- NOTE | 2019-07-18 11:45 | NUR ---
Discharge instructions given. Patient verbalizes understanding of same. Discharged in stable condition via Wheelchair to Home with *Other. All belongings sent with pt.
== END 2019-07-18 11:48 | disposition home or self-care (01) | DRG 57 ==
LOC: ED 23:36 → ED-I 07-11 14:07 → ED 07-11 14:41 → ICU 07-11 14:42 → MS2 07-17 11:55
PROVIDERS: Nurse Practitioner Family; ADMIT Internal Medicine; ATTEND Internal Medicine
PROC: 0HQFXZZ Repair Right Hand Skin, External Approach (ICD-10-PCS; principal; 2019-07-11)
PROC: 0T9B70Z Drainage of Bladder with Drainage Device, Via Natural or Artificial Opening (ICD-10-PCS; 2019-07-14)
DX: G30.9 Alzheimer's disease, unspecified (principal); F02.81 Dementia in other diseases classified elsewhere, unspecified severity, with behavioral disturbance; I10 Essential (primary) hypertension; T79.6XXA Traumatic ischemia of muscle, initial encounter; E80.6 Other disorders of bilirubin metabolism; S61.011A Laceration without foreign body of right thumb without damage to nail, initial encounter; R33.9 Retention of urine, unspecified; E87.6 Hypokalemia; V43.52XA Car driver injured in collision with other type car in traffic accident, initial encounter; Z78.1 Physical restraint status
CPT/HCPCS: J2060; S0166